=== PATIENT | male | born 1940 | race Caucasian/White ===

== ENCOUNTER 2017-07-06 07:57 | Emergency (ER) | payer MEDICARE ==
[~2017-07-06] VITALS: Ht 175.3 cm; Wt 80.0 kg
[2017-07-06] MEDS ORDERED: CYCLOBENZAPRINE 10MG TABLET PO ONE (10:15)
[2017-07-06] MEDS ORDERED: KETOROLAC 30MG/ML VIAL IM ONE (10:15)
[2017-07-06 11:16] VITALS: BP 126/67
== END 2017-07-06 11:29 | disposition home or self-care (01) ==
LOC: ER 08:43
DX: M54.5 Low back pain (principal); F17.200 Nicotine dependence, unspecified, uncomplicated
CPT/HCPCS: 96372; 99283; J1885